=== PATIENT | female | born 1975 | race Hispanic/Latino ===

== ENCOUNTER → 2018-12-01 | Outpatient (CLI) | payer MEDICAID | END | disposition home or self-care (01) | LOC: RAH 11:03 | PROVIDERS: ATTEND Internal Medicine | DX: N83.202 Unspecified ovarian cyst, left side (principal); F41.1 Generalized anxiety disorder; N93.9 Abnormal uterine and vaginal bleeding, unspecified | CPT/HCPCS: 76856 ==

== ENCOUNTER → 2021-07-15 | Outpatient (CLI) | payer MEDICAID | END | disposition home or self-care (01) | LOC: OIH 13:18 | PROVIDERS: ATTEND Internal Medicine | DX: M47.815 Spondylosis without myelopathy or radiculopathy, thoracolumbar region (principal); R05.9 Cough, unspecified | CPT/HCPCS: 71046 ==

== ENCOUNTER 2025-04-30 09:56 | Inpatient (IN) | payer SELFPAY ==
[~2025-04-30] VITALS: Ht 162.6 cm; Wt 104.3 kg
[~2025-04-30 09:56] MED LIST: DICY10 PO
[2025-04-30 10:14] LABS: HCG,QUALITATIVE URINE NEGATIVE (NEGATIVE)
[2025-04-30 10:18] LABS: APPEARANCE,URINE CLEAR (CLEAR); GLUCOSE, URINE (UA) 500 mg/dL (NEGATIVE); LEUKOCYTE ESTERASE ,URINE 250 Leu/uL (NEGATIVE); NITRATE,URINE NEGATIVE (NEGATIVE); OCCULT BLOOD,URINE NEGATIVE (NEGATIVE)
[2025-04-30 10:19] LABS: ADD UA MICROSCOPIC YES
[2025-04-30 10:19] LABS: IMMATURE GRANULOCYTE ABSOLUTE 0.05 K/uL (0-1); NUCLEATED RED BLOOD CELLS 0.0 % (0.0-0.19); PLATELET COUNT (AUTO) 363 K/uL (130-400); RED BLOOD CELL COUNT(AUTO) 4.78 MIL/uL (4.00-5.50); RED CELL DISTRIBUTION WIDTH 13.5 % (11.0-15.5); WHITE BLOOD COUNT (AUTO) 10.1 K/uL (4.8-10.8)
[2025-04-30 10:26] LABS: CREATININE 0.8 mg/dL (0.5-1.0); GLOMERULAR FILTR. RATE CALC 91.0 mL/min (>90); GLUCOSE,RANDOM 254.0 mg/dL (70-105); SODIUM SERUM 135.0 mmol/L (136-145); UREA NITROGEN, BLOOD 12.0 mg/dL (7-18)
[2025-04-30 10:31] LABS: SQUAMOUS EPITHELIAL CELL,UR MOD /HPF (0-2)
[2025-04-30] MEDS: LACTATED RINGERS 1000ML 1,000 ML IV ONE (10:34)
[2025-04-30 10:36] LABS: ASPARTATE AMINOTRANSFERASE 13.0 U/L (10-37); HCG,QUANTITATIVE 0.0 mIU/mL (0-5); TOTAL PROTEIN, SERUM 7.7 g/dL (6.0-8.3)
--- NOTE | 2025-04-30 11:44 | ERN ---
General Chief Complaint: Abdominal Pain Stated Complaint: ABD PAIN/ NAUSEA Time Seen by MD: 09:57 Source: patient History of Present Illness Initial Comments Patient is a 49-year-old female coming in complaining of right upper quadrant pain. Per patient she has a history of a cholelithiasis discovered two years ago. Patient states that she was evaluated by her PCP and sent to a surgeon but has not has a a follow up yet. Patient states that the pain is 10/10 right upper quadrant area. Allergies: Coded Allergies: No Known Allergies (Unverified Allergy, Unknown, 03/03/22) Home Meds Active Scripts Dicyclomine HCl (Bentyl) 10 Mg Cap, 10 MG PO QID, #30 CAP Prov:GUILLERMO CATHERINE MD 03/03/22 Past Medical History Past Medical History: Diabetes-Type II Past Surgical History: BTL Social History Social History: Negative, Lives with family Female( History) History: Not Applicable ROS Dictation CONSTITUTIONAL: No chills, no fever, no weakness, no diaphoresis, no malaise. HEAD/FACE: No signs of trauma. EENT: No eye pain, no blurred vision, no tearing, no double vision, no ear pain, no ear discharge, no nose pain, no nasal congestion, no throat pain, no throat swelling, no mouth pain. RESPIRATORY: No cough, no orthopnea, no SOB, no stridor, no wheezing. CARDIOVASCULAR: No chest pain, no edema, no palpitations, no syncope. GASTROINTESTINAL/ABDOMINAL: abdominal pain, no constipation, no diarrhea, no nausea, no vomiting. GENITOURINARY: No abnormal discharge, no dysuria, no frequent urination, no hematuria. No complaints of pain in the genitals. MUSCULOSKELETAL: No back pain, no gout, no joint pain, no joint swelling, no muscle pain, no muscle stiffness, no neck pain. INTEGUMENTARY: No change in color, no change in hair/nails, no dryness, no lesion, no lumps, no rash. NEUROLOGICAL/PSYCH: No anxiety, not depressed, no emotional problem, no headache, no numbness, no pre-existing deficit, no history of seizures, no tremors, no weakness. HEMATOLOGIC/LYMPHATIC: Not anemic, no history of blood clots, no apparent bleeding, no bruising, glands not swollen. All Systems Negative, Except as Noted. Physical Exam Physical Exam Dictation VITAL SIGNS: Reviewed. GENERAL APPEARANCE: Alert, oriented x3, no acute distress, obese. HEAD AND FACE: Non-traumatic. EYES: PERRL, pink conjunctivas, eyelid no trauma, anterior chamber clear. EARS: Pinnas intact and no signs of trauma or erythema. Ear canals clear and no discharge. TMs no erythema. NOSE: No discharge, no bleeding. OROPHARYNX: Mouth normal, teeth no caries, tongue pink. Pharynx clear, no erythema. Tonsils no exudates, no abscesses noted. Mucous membrane moist. NECK: Supple, non-tender, no thyromegaly, no masses, no JVD, no bruits. BREAST: Deferred. CHEST: No tenderness, no crepitus, no paradoxical movement, no retractions. LUNGS: Clear, well-ventilated, symmetric, no rales, no wheezing, no rhonchi, no stridor, good breath sounds bilaterally. HEART: Regular rate, regular rhythm, no murmur, no gallops. VASCULAR: No peripheral edema. ABDOMEN: Soft, positive bowel sounds, nondistended, no guarding, right upper quadrant tender, no rebound, no masses no hepatomegaly, no splenomegaly, no Nichols's sign, no hernias. RECTAL: Deferred. GENITAL: Deferred. NEUROLOGICAL: Normal speech, gross motor function intact, gross sensory function intact. MUSCULOSKELETAL: Neck nontender, full range of motion, back nontender, full range of motion. EXTREMITIES: Nontender, full range of motion. SKIN: Color pink, dry, no turgor, no rash, no lacerations, no abrasions, no contusions. LYMPHATICS: Deferred. Results Laboratory and Microbiology Lab and Micro Result Laboratory Tests Test 04/30/25 10:03 04/30/25 10:11 Urine Color LIGHT-YELLOW (YELLOW) Urine Appearance CLEAR (CLEAR) Urine pH 5.5 (5.0-8.0) Urine Specific [place] 1.021 (1.001-1.031) Urine Protein NEGATIVE mg/dL (NEGATIVE) Urine Glucose (UA) 500 mg/dL (NEGATIVE) H Urine Ketones 20 mg/dL (NEGATIVE) H Urine Occult Blood NEGATIVE (NEGATIVE) Urine Nitrate NEGATIVE (NEGATIVE) Urine Bilirubin NEGATIVE mg/dL (NEGATIVE) Urine Urobilinogen 0.2 mg/dL (0.2-1.0) Urine Leukocyte Esterase 250 [place]/uL (NEGATIVE) H Urine RBC 2-5 /HPF (0-1) H Urine WBC 11-25 /HPF (0-1) H Urine Squamous Epithelial Cells MOD /HPF (0-2) Urine Bacteria FEW /HPF (None Seen) Urine HCG, Qualitative NEGATIVE (NEGATIVE) White Blood Count 10.1 K/uL (4.8-10.8) Red Blood Count 4.78 MIL/uL (4.00-5.50) Hemoglobin 14.5 g/dL (12.0-16.0) Hematocrit 42.4 % (36-48) Mean Corpuscular Volume 88.7 fL (79-99) Mean Corpuscular Hemoglobin 30.3 pg (27.0-33.0) Mean Corpuscular Hemoglobin Concent 34.2 g/dL (32.0-36.0) Red Cell Distribution Width 13.5 % (11.0-15.5) Platelet Count 363 K/uL (130-400) Mean Platelet Volume 10.1 fL (7.5-10.5) Immature Granulocyte % (Auto) 0.5 % (0-1) Neutrophils (%) (Auto) 63.7 % (40.0-77.0) Lymphocytes (%) (Auto) 27.2 % (21.0-51.0) Monocytes (%) (Auto) 6.3 % (3.0-13.0) Eosinophils (%) (Auto) 1.6 % (0.0-8.0) Basophils (%) (Auto) 0.7 % (0.0-5.0) Neutrophils # (Auto) 6.4 K/uL (1.8-7.7) Lymphocytes # (Auto) 2.7 K/uL (1.0-4.8) Monocytes # (Auto) 0.6 K/uL (0.1-1.0) Eosinophils # (Auto) 0.16 K/uL (0.00-0.70) Basophils # (Auto) 0.07 K/uL (0.00-0.20) Absolute Immature Granulocyte (auto 0.05 K/uL (0-1) Nucleated Red Blood Cells 0.0 % (0.0-0.19) Sodium Level 135 mmol/L (136-145) L Potassium Level 4.4 mmol/L (3.5-5.1) Chloride Level 100 mmol/L (101-111) L Carbon Dioxide Level 28 mmol/L (21-32) Blood Urea Nitrogen 12 mg/dL (7-18) Creatinine 0.8 mg/dL (0.5-1.0) Glomerular Filtration Rate Calc 91 mL/min (>90) Random Glucose 254 mg/dL (70-105) H Total Calcium 9.0 mg/dL (8.5-10.1) Total Bilirubin 0.4 mg/dL (0.2-1.0) Aspartate Amino Transf (AST/SGOT) 13 U/L (10-37) Alanine Aminotransferase (ALT/SGPT) 19 U/L (12-78) Alkaline Phosphatase 114 U/L (50-136) Total Protein 7.7 g/dL (6.0-8.3) Albumin 3.5 g/dL (3.5-5.0) Lipase 62 U/L (16-77) Human Chorionic Gonadotropin, Quant 0 mIU/mL (0-5) Labs Reviewed?: Yes EKG/XRAY/US/CT/MRI Ultrasound Comment Upper quadrant ultrasound-cholelithiasis rule out cholecystitis MDM MDM: Differential diagnosis: Cholecystitis, cholelithiasis, Rationale: Tests considered and ordered secondary to shared decision making include: labs, ECG and radiology Previous outside records reviewed: Old ER visits. Risk of complication and/or morbidity or mortality of patient management: None Medications-Per medication reconciliation Need for hospitalization: Patient does meet criteria for hospitalization. Need for emergency major/minor surgery: No There are no social concerns with this patient. Prescription drug management Prescriptions will include symptomatic care Patient's prior external medical records from other ER visits were reviewed by me as indicated. Prior testing and results from previous visits were reviewed. Prior tests were taken into account with medical decision making and resource utilization, independent historian/historians were used to obtain complete medical history. I independently interpreted the test that were performed, results were reviewed by me and considered findings on radiology if ordered. Medical management and examination interpretation discussions were had by me with other qualified healthcare professionals as indicated for the patient's care. Patient is a 49-year-old female coming in complaining of right upper quadrant pain per patient she has been dealing with this for many years and getting worse in the last couple of days. Patient will be admitted under the care of Dr. Howell surgeon on the case Dr. Osei ED Course Orders Procedure Category Date Status Time Cbc With Differential LAB 04/30/25 Complete 10:01 Comprehensive LAB 04/30/25 Complete Metabolic Panel 10:01 Hcg,Quantitative LAB 04/30/25 Complete 10:01 ,Urine Test LAB 04/30/25 Complete 10:01 Urinalysis Profile LAB 04/30/25 Complete 10:01 Us Abdominal Ruq\Ltd US 04/30/25 Taken 10:01 Lactated Ringers PHA 04/30/25 Complete 1000ml (Lactated 10:30 Ondansetron 4mg Inj PHA 04/30/25 Complete (Zofran 4mg Inj) 10:30 Pantoprazole 40mg Inj PHA 04/30/25 Complete (Protonix 40mg Inj 10:30 Lipase LAB 04/30/25 Complete 10:01 Culture Urine ISAÍAS 04/30/25 In Process 10:20 Morphine 2mg Syg PHA 04/30/25 Logged (Morphine 2mg Syg) 12:00 Ondansetron 4mg Inj PHA 04/30/25 Logged (Zofran 4mg Inj) 12:00 Current Medications Medications (Trade) Dose Ordered Sig/Toi Route PRN Reason Start Time Stop Time Status Last Admin Dose Admin Lactated Ringer's 1,000 ml @ 0 mls/hr ONCE ONCE IV 04/30/25 10:30 04/30/25 10:31 DC 04/30/25 10:34 Morphine Sulfate (morPHINE 4MG SYG) 2 mg ONCE ONCE IVP 04/30/25 12:00 04/30/25 12:01 Ondansetron HCl (zoFRAN 4MG INJ) 4 mg ONCE ONCE IVP 04/30/25 10:30 04/30/25 10:31 DC 04/30/25 10:34 Ondansetron HCl (zoFRAN 4MG INJ) 4 mg ONCE ONCE IVP 04/30/25 12:00 04/30/25 12:01 UNV Pantoprazole Sodium (PROTonix 40MG INJ) 40 mg ONCE ONCE IVP 04/30/25 10:30 04/30/25 10:31 DC 04/30/25 10:34 Vital Signs Date Time Temp Pulse Resp B/P (MAP) Pulse Ox O2 Delivery O2 Flow Rate FiO2 04/30/25 09:59 98.4 63 20 143/95 99 Room Air 5.0 DX & DISP Disposition: Inpatient Decision to Admit Time: 11:43 Departure Impression: Primary Impression: Cholecystitis Additional Impression: Cholelithiasis Condition: Stable Referrals: CONNIE HOWELL MD (PCP) MIGDALIA LOAIZA MD Apr 30, 2025 11:43
[2025-04-30] MEDS ORDERED: 0.9%NACL 50ML IV SCH (12:00)
--- NOTE | 2025-04-30 12:19 | HMCIMG ---
EXAM: US Abdomen, Right Upper Quadrant. CLINICAL HISTORY: Adominal Pain TECHNIQUE: Right upper quadrant sonography performed with image documentation. COMPARISON: Rosanne dated 03/03/2022 FINDINGS: LIVER: The liver is enlarged in size, measuring approximately 19 cm, with increased echogenicity. GALLBLADDER: Multiple calculi in the gallbladder, The gall bladder appears distended, measuring approximately 11.1 cm, and gallbladder thickness measures approximately 2 mm. COMMON BILE DUCT: No dilation. PANCREAS: The pancreas obscured by overlying bowel gas. RIGHT KIDNEY: Unremarkable. Normal renal contours. No renal mass or calculus. No hydronephrosis. IMPRESSION: 1. Hepatomegaly with increased echogenicity, suggesting hepatic steatosis. 2. Cholelithiasis with gallbladder distension. Findings are concerning for acute cholecystitis, recommend hepatobiliary (HIDA) scan for further evaluation. /Everetts
[2025-04-30] MEDS: ZOSYN 3.375GM +NS 50ML IVPB SCH (12:38)
[2025-04-30] MEDS: 1/2 NS 1000ML 1,000 ML IV SCH (12:38)
--- NOTE | 2025-04-30 14:15 | NUR ---
1st attempt to call report nurse currently at lunch angela will be accepting pt
--- NOTE | 2025-04-30 14:38 | NUR ---
second attempt nurse not back from lunch at this time
--- NOTE | 2025-04-30 14:51 | NUR ---
3rd attempt to contact nurse not back from lunch at this time aida advised will tell nurse about call
--- NOTE | 2025-04-30 15:01 | HP ---
HISTORY AND PHYSICAL NOTE DATE OF CONSULTATION: 04/30/25 REASON FOR CONSULTATION: Abdominal pain HISTORY OF PRESENT ILLNESS: Patient is a 49-year-old female coming in complaining of right upper quadrant pain. Per patient she has a history of a cholelithiasis discovered two years ago. Patient states that she was evaluated by her PCP and sent to a surgeon but has not has a a follow up yet. Patient states that the pain is 10/10 right upper quadrant area. Allergies: Coded Allergies: No Known Allergies (Unverified Allergy, Unknown, 03/03/22) Home Meds Active Scripts Dicyclomine HCl (Bentyl) 10 Mg Cap, 10 MG PO QID, #30 CAP Prov:GUILLERMO CATHERINE MD 03/03/22 Past History Past Medical History Past Medical History: Diabetes-Type II Past Surgical History: BTL Social History Social History: Negative, Lives with family Female( History) History: Not Applicable Review of Systems ROS Dictation CONSTITUTIONAL: No chills, no fever, no weakness, no diaphoresis, no malaise. HEAD/FACE: No signs of trauma. EENT: No eye pain, no blurred vision, no tearing, no double vision, no ear pain, no ear discharge, no nose pain, no nasal congestion, no throat pain, no throat swelling, no mouth pain. RESPIRATORY: No cough, no orthopnea, no SOB, no stridor, no wheezing. CARDIOVASCULAR: No chest pain, no edema, no palpitations, no syncope. GASTROINTESTINAL/ABDOMINAL: abdominal pain, no constipation, no diarrhea, no nausea, no vomiting. GENITOURINARY: No abnormal discharge, no dysuria, no frequent urination, no hematuria. No complaints of pain in the genitals. MUSCULOSKELETAL: No back pain, no gout, no joint pain, no joint swelling, no muscle pain, no muscle stiffness, no neck pain. INTEGUMENTARY: No change in color, no change in hair/nails, no dryness, no lesion, no lumps, no rash. NEUROLOGICAL/PSYCH: No anxiety, not depressed, no emotional problem, no headache, no numbness, no pre-existing deficit, no history of seizures, no tremors, no weakness. HEMATOLOGIC/LYMPHATIC: Not anemic, no history of blood clots, no apparent bleeding, no bruising, glands not swollen. All Systems Negative, Except as Noted. ALLERGIES: Coded Allergies: No Known Allergies (Unverified Allergy, Unknown, 03/03/22) HOME MEDS: Active Scripts Dicyclomine HCl (Bentyl) 10 Mg Cap, 10 MG PO QID, #30 CAP Prov:GUILLERMO CATHERINE MD 03/03/22 INPATIENT MEDS: Current Medications Medications Dose Ordered Sig/Toi Start Time Stop Time Status Last Admin Sodium Chloride 1,000 ml @ 125 mls/hr Q8H 04/30/25 12:00 05/30/25 11:59 04/30/25 12:38 Hydromorphone HCl 0.5 mg Q4H PRN 04/30/25 12:00 05/05/25 11:59 Ondansetron HCl 4 mg Q4H4 PRN 04/30/25 12:00 05/30/25 11:59 Pantoprazole Sodium 40 mg DAILY 05/01/25 09:00 05/31/25 08:59 Piperacillin Sod/ Tazobactam Sod 3.375 gm Q8H 04/30/25 12:00 05/02/25 11:59 04/30/25 12:38 VITAL SIGNS Vital Signs Date Time Temp Pulse Resp B/P (MAP) Pulse Ox O2 Delivery O2 Flow Rate FiO2 04/30/25 14:13 98.4 72 16 153/91 98 Room Air* 0 21 04/30/25 12:23 98.4 64 16 164/109 98 Room Air* 0 21 04/30/25 09:59 98.4 63 20 143/95 99 Room Air 5.0 PHYSICAL EXAM Physical Exam Physical Exam Physical Exam Dictation VITAL SIGNS: Reviewed. GENERAL APPEARANCE: Alert, oriented x3, no acute distress, obese. HEAD AND FACE: Non-traumatic. EYES: PERRL, pink conjunctivas, eyelid no trauma, anterior chamber clear. EARS: Pinnas intact and no signs of trauma or erythema. Ear canals clear and no discharge. TMs no erythema. NOSE: No discharge, no bleeding. OROPHARYNX: Mouth normal, teeth no caries, tongue pink. Pharynx clear, no erythema. Tonsils no exudates, no abscesses noted. Mucous membrane moist. NECK: Supple, non-tender, no thyromegaly, no masses, no JVD, no bruits. BREAST: Deferred. CHEST: No tenderness, no crepitus, no paradoxical movement, no retractions. LUNGS: Clear, well-ventilated, symmetric, no rales, no wheezing, no rhonchi, no stridor, good breath sounds bilaterally. HEART: Regular rate, regular rhythm, no murmur, no gallops. VASCULAR: No peripheral edema. ABDOMEN: Soft, positive bowel sounds, nondistended, no guarding, right upper quadrant tender, no rebound, no masses no hepatomegaly, no splenomegaly, no Nichols's sign, no hernias. RECTAL: Deferred. GENITAL: Deferred. NEUROLOGICAL: Normal speech, gross motor function intact, gross sensory function intact. MUSCULOSKELETAL: Neck nontender, full range of motion, back nontender, full range of motion. EXTREMITIES: Nontender, full range of motion. SKIN: Color pink, dry, no turgor, no rash, no lacerations, no abrasions, no contusions. LYMPHATICS: Deferred. LABORATORY RESULTS Laboratory Tests 04/30/25 10:03: Urine Color LIGHT-YELLOW, Urine Appearance CLEAR, Urine pH 5.5, Urine Specific [place] 1.021, Urine Protein NEGATIVE, Urine Glucose (UA) 500, Urine Ketones 20, Urine Occult Blood NEGATIVE, Urine Nitrate NEGATIVE, Urine Bilirubin NEGATIVE, Urine Urobilinogen 0.2, Urine Leukocyte Esterase 250, Urine RBC 2-5, Urine WBC 11-25, Urine Squamous Epithelial Cells MOD, Urine Bacteria FEW, Urine HCG, Qualitative NEGATIVE 04/30/25 10:11: White Blood Count 10.1, Red Blood Count 4.78, Hemoglobin 14.5, Hematocrit 42.4, Mean Corpuscular Volume 88.7, Mean Corpuscular Hemoglobin 30.3, Mean Corpuscular Hemoglobin Concent 34.2, Red Cell Distribution Width 13.5, Platelet Count 363, Mean Platelet Volume 10.1, Immature Granulocyte % (Auto) 0.5, Neutrophils (%) (Auto) 63.7, Lymphocytes (%) (Auto) 27.2, Monocytes (%) (Auto) 6.3, Eosinophils (%) (Auto) 1.6, Basophils (%) (Auto) 0.7, Neutrophils # (Auto) 6.4, Lymphocytes # (Auto) 2.7, Monocytes # (Auto) 0.6, Eosinophils # (Auto) 0.16, Basophils # (Auto) 0.07, Absolute Immature Granulocyte (auto 0.05, Nucleated Red Blood Cells 0.0, Sodium Level 135, Potassium Level 4.4, Chloride Level 100, Carbon Dioxide Level 28, Blood Urea Nitrogen 12, Creatinine 0.8, Glomerular Filtration Rate Calc 91, Random Glucose 254, Total Calcium 9.0, Total Bilirubin 0.4, Aspartate Amino Transf (AST/SGOT) 13, Alanine Aminotransferase (ALT/SGPT) 19, Alkaline Phosphatase 114, Total Protein 7.7, Albumin 3.5, Lipase 62, Human Chorionic Gonadotropin, Quant 0 PROBLEM LIST: (1) Biliary colic ICD Codes: K80.50 - Calculus of bile duct without cholangitis or cholecystitis without obstruction (2) Cholelithiasis ICD Codes: K80.20 - Calculus of gallbladder without cholecystitis without obstruction PLAN Admit NPO IV fluids Consult surgery CONNIE HOWELL MD Apr 30, 2025 15:01
[2025-04-30] MEDS ORDERED: RISP-30 PO (15:18)
[2025-04-30] MEDS ORDERED: ROSU10TA72 PO (15:18)
[2025-04-30] MEDS ORDERED: GLIM4TAB36 PO (15:18)
[2025-04-30 15:30] VITALS: BP 142/93; PULSE 58; RESP 20; TEMP 97.7
--- NOTE | 2025-04-30 15:53 | CONS ---
GENERAL SURGERY CONSULTATION NOTE Date/Time Patient Seen: [ April 30, 2025] Requesting Physician: [ ] Reason for Consultation: [Gallstones ] History of Present Illness: [ Patients who has known she has had gallstones for many years. However over 48 hours ago patient started to experience excruciating pain in the right upper quadrant. Associated with the pain with some nausea and some emesis. Patient denies any melena, hematochezia, hematuria. Pain was severe enough patient came in the emergency room. Complete lab work and an ultrasound was obtained. The ultrasound shows a distended gallbladder with multiple stones within it. I pe rsonally reviewed the ultrasound. Patient also has a thickened gallbladder wall. Prior to onset of symptoms patient was tolerating a regular diet, having regular bowel function.] Past Medical History: [Diabetes] Past Surgical History: [Tubal ligation] Family History: [ Noncontributory] Social History: [ Patient denies any illicit drug use] Habits: [Never] smoker. [Denies] alcohol consumption. [Denies] illicit drug use Current Medications Medications (Trade) Dose Ordered Sig/Toi Route Start Time Stop Time Status Last Admin Dose Admin Pantoprazole Sodium (PROTonix 40MG INJ) 40 mg DAILY IVP 05/01/25 09:00 05/31/25 08:59 Piperacillin Sod/ Tazobactam Sod (Zosyn 3.375gm+NS 50ml) 3.375 gm Q8H IVPB 04/30/25 12:00 05/02/25 11:59 04/30/25 12:38 3.375 GM Sodium Chloride 1,000 ml @ 125 mls/hr Q8H IV 04/30/25 12:00 05/30/25 11:59 04/30/25 12:38 125 MLS/HR Sodium Chloride (NS 50ml) 50 ml AD IV 04/30/25 12:00 04/30/25 12:01 DC Review of Systems: CONST: [No fever, fatigue, or weight changes.] EYES: [No recent vision problems.] ENT: [No congestion, ear pain, or sore throat.] C/V: [No chest pain, palpitations, or edema.] RESP: [No cough, congestion, wheezing or shortness of breath.] GI: [No abdominal pain, nausea, vomiting, constipation, or diarrhea.] : [No incontinence or dysuria.] SKIN: [No rash.] NEURO: [No headache, focal numbness or weakness, dizziness, or seizures.] PSYCH: [No depression or anxiety.] HEME: [No abnormal bruising or bleeding.] LYMPH: [No swollen glands.] Physical Examination: PHYSICAL EXAM EYES: Sclera white HENT: Oral nasal mucosa pink and moist NECK: Supple, . LUNGS: Unlabored CARDIOVASCULAR: Regular rate and rhythm ABDOMEN: Tender to palpation right upper quadrant. No rebound. No peritoneal signs. CENTRAL NERVOUS SYSTEM: Awake, alert, oriented x3 SKIN: No rashes, no swelling. LYMPHATICS: No peripheral lymphadenopathy MUSCULOSKELETAL: Motor and sensory function grossly intact EXTREMITIES: No cyanosis or clubbing Vital Signs (last 8hr) Date Time Temp Pulse Resp B/P (MAP) Pulse Ox O2 Delivery O2 Flow Rate FiO2 04/30/25 15:14 98.4 78 16 136/92 98 Room Air* 0 21 04/30/25 14:13 98.4 72 16 153/91 98 Room Air* 0 21 04/30/25 12:23 98.4 64 16 164/109 98 Room Air* 0 21 04/30/25 09:59 98.4 63 20 143/95 99 Room Air 5.0 Laboratory: [ ] Hematology Labs: Test 04/30/25 10:11 Range/Units White Blood Count 10.1 4.8-10.8 K/uL Red Blood Count 4.78 4.00-5.50 MIL/uL Hemoglobin 14.5 12.0-16.0 g/dL Hematocrit 42.4 36-48 % Mean Corpuscular Volume 88.7 79-99 fL Mean Corpuscular Hemoglobin 30.3 27.0-33.0 pg Mean Corpuscular Hemoglobin Concent 34.2 32.0-36.0 g/dL Red Cell Distribution Width 13.5 11.0-15.5 % Platelet Count 363 130-400 K/uL Mean Platelet Volume 10.1 7.5-10.5 fL Immature Granulocyte % (Auto) 0.5 0-1 % Neutrophils (%) (Auto) 63.7 40.0-77.0 % Lymphocytes (%) (Auto) 27.2 21.0-51.0 % Monocytes (%) (Auto) 6.3 3.0-13.0 % Eosinophils (%) (Auto) 1.6 0.0-8.0 % Basophils (%) (Auto) 0.7 0.0-5.0 % Neutrophils # (Auto) 6.4 1.8-7.7 K/uL Lymphocytes # (Auto) 2.7 1.0-4.8 K/uL Monocytes # (Auto) 0.6 0.1-1.0 K/uL Eosinophils # (Auto) 0.16 0.00-0.70 K/uL Basophils # (Auto) 0.07 0.00-0.20 K/uL Absolute Immature Granulocyte (auto 0.05 0-1 K/uL Nucleated Red Blood Cells 0.0 0.0-0.19 % Chemistry Labs: Test 04/30/25 10:11 Range/Units Sodium Level 135 L 136-145 mmol/L Potassium Level 4.4 3.5-5.1 mmol/L Chloride Level 100 L 101-111 mmol/L Carbon Dioxide Level 28 21-32 mmol/L Blood Urea Nitrogen 12 7-18 mg/dL Creatinine 0.8 0.5-1.0 mg/dL Glomerular Filtration Rate Calc 91 >90 mL/min Random Glucose 254 H 70-105 mg/dL Total Calcium 9.0 8.5-10.1 mg/dL Total Bilirubin 0.4 0.2-1.0 mg/dL Aspartate Amino Transf (AST/SGOT) 13 10-37 U/L Alanine Aminotransferase (ALT/SGPT) 19 12-78 U/L Alkaline Phosphatase 114 50-136 U/L Total Protein 7.7 6.0-8.3 g/dL Albumin 3.5 3.5-5.0 g/dL Lipase 62 16-77 U/L Human Chorionic Gonadotropin, Quant 0 0-5 mIU/mL Diagnostics / Radiology: [Copy/Paste Echos/Imaging Report here] Assessment: [ Gallstones causing patient discomfort.] Plan: [Plan laparoscopic cholecystectomy with intraoperative cholangiogram. Risks associated with the procedure not limited to infection, bleeding, injury to surrounding structures has been discussed with the patient and she indicates she understands. ] VITO ROSE MD Apr 30, 2025 15:53
[2025-04-30 20:17] VITALS: BP 125/82; PULSE 60; RESP 20; TEMP 97.5
[2025-05-01] VITALS (28 sets, daily range): BP systolic 118–162; BP diastolic 67–132; PULSE 46–102; RESP 15–19; TEMP 97.3–98.3; O2SAT 96–97
[2025-05-01 06:30] LABS: IMMATURE GRANULOCYTE ABSOLUTE 0.03 K/uL (0-1); NUCLEATED RED BLOOD CELLS 0.0 % (0.0-0.19); PLATELET COUNT (AUTO) 280 K/uL (130-400); RED BLOOD CELL COUNT(AUTO) 4.41 MIL/uL (4.00-5.50); RED CELL DISTRIBUTION WIDTH 13.6 % (11.0-15.5); WHITE BLOOD COUNT (AUTO) 8.1 K/uL (4.8-10.8)
[2025-05-01 06:49] LABS: ASPARTATE AMINOTRANSFERASE 19.0 U/L (10-37); CREATININE 0.7 mg/dL (0.5-1.0); GLOMERULAR FILTR. RATE CALC 107.0 mL/min (>90); GLUCOSE,RANDOM 166.0 mg/dL (70-105); SODIUM SERUM 138.0 mmol/L (136-145); TOTAL PROTEIN, SERUM 6.9 g/dL (6.0-8.3); UREA NITROGEN, BLOOD 7.0 mg/dL (7-18)
[2025-05-01] MEDS ORDERED: BUPIvacaine HCL/EPINEPHrine/PF 0.25% 10ML VIAL IJ ONE (07:08)
[2025-05-01] MEDS ORDERED: MIDAZOLAM HCL 1 MG/ML 2ML VIAL ONE (07:21)
[2025-05-01] MEDS: IOHEXOL-300 50 ML VIAL IV ONE (08:10)
[2025-05-01] MEDS ORDERED: GLYCOPYRROLATE 0.2 MG/ML 5 ML VIAL ONE (08:29)
[2025-05-01] MEDS ORDERED: NEOSTIGMINE METHYLSULFATE 1MG/ML IV ONE (08:29)
--- NOTE | 2025-05-01 08:32 | OP ---
Operative Note: DATE OF PROCEDURE: 05/01/25 SURGEON: VITO ROSE MD FORMULA CHECKER: [Faina Reyes CFA] ANESTHESIA: [General endotracheal anesthesia] ANESTHESIOLOGIST/TOBACCO DRYING MACHINE OPERATOR: [[facility] anesthesia team] PREOPERATIVE DIAGNOSIS: [Cholecystitis] POSTOPERATIVE DIAGNOSIS: [Same] SYNOPSIS: [Cholecystitis causing patient discomfort Laparoscopic cholecystectomy with intraoperative cholangiogram #1 critical view obtained, #2 intraoperative cholangiogram with good flow of contrast from cystic duct into common bile duct, right and left hepatic duct, and duodenum noted All sponges and instruments accounted for at the end the case Patient tolerated the procedure well, there no complications] PROCEDURE: [Laparoscopic cholecystectomy with intraoperative cholangiogram] ESTIMATED BLOOD LOSS: [Less than 10 cc] INDICATIONS: [Cholecystitis] DESCRIPTION OF PROCEDURE: [On day of surgery patient was brought to the operating room. Positioned in the supine position. Preoperative antibiotics were given. Bilateral SCDs were placed. The patient was intubated. Patient then was prepped and draped in the usual fashion. Then a skin incision was made in the right upper quadrant. 5 mm trochars inserted under direct vision. Abdomen was insufflated to 15 mmHg. No injury to omentum or bowel is noted. A 5 mm port was placed in the umbilicus. A 12 mm port was placed in the subxiphoid position. A 5 mm port was placed in the right lateral abdomen. The gallbladder was grasped, elevated, the cystic duct and cystic artery was sequentially dissected. Critical view was obtained. An intraoperative cholangiogram was conducted by placing a clip at the distal end of the cystic duct. Ductotomy was made. A cholangiocatheter was introduced. Good flow of contrast from the cystic duct into common bile duct, right and left hepatic duct, and duodenum was noted. The Cholangiocath was removed. The cystic duct was sequentially clipped and transected. The cystic artery was then sequentially clipped and transected. The gallbladder then was dissected off the gallbladder fossa and removed an Endo Catch bag. Abdomen was irrigated. Appropriate hemostasis was noted. Then all insufflation gas was removed. Ports were removed. Local anesthetic was instilled into the incisions, and the incisions were closed with a subcuticular fashion. All sponges and instruments were accounted for at the end of the case. Patient tolerated the procedure well, there were no complications.] VITO ROSE MD May 01, 2025 08:32
[2025-05-01] MEDS ORDERED: IOHEXOL-350 50ML VIAL IV ONE (08:39)
--- NOTE | 2025-05-01 09:43 | NUR ---
NURSING NOTE RECEIVED PATIENT BACK FROM PACU. PATIENT HAD LAP MARK WITH DR ROSE. PATIENT ORIENTATED BACK TO ROOM, NO 02 NEEDED. VITAL SIGNS WERE STARTED. 3 INCISION TO ABD. ANSWERED ANY QUESTIONS AND CONCERNS PATIENT HAD. CALL LIGHT WITHIN REACH OF PATIENT.
--- NOTE | 2025-05-01 11:18 | NUR ---
DCP:HOME Pt currently lives at home with her brother and adult children. Pt states that she does not have any DME, home health, or provider services. Pt states that she is able to complete ADLs independently. Pt states that she does not have insurance but does private pay with Dr. Canseco and uses [facility] for any RX needs. At [place] pt will want to go home and family can assist with transportation. Addendum: 05/01/25 at 1119 by HELADIO PLUNKETT SS Amended: Links added.
[2025-05-01] MEDS: PoTASSium chloRIDE 20MEQ ER 20 MEQ ERTAB PO PRN (13:57)
--- NOTE | 2025-05-01 16:28 | PN ---
PROGRESS NOTE PROGRESS NOTE DATE OF PROGRESS NOTE: 05/01/25 SUBJECTIVE: pending surgery VITAL SIGNS Vital Signs Date Time Temp Pulse Resp B/P (MAP) Pulse Ox O2 Delivery O2 Flow Rate FiO2 05/01/25 13:19 67 162/97 98 Room Air 21 05/01/25 09:34 97.9 05/01/25 09:31 16 05/01/25 09:01 10.0 PHYSICAL EXAM: Physical Exam Physical Exam Physical Exam Dictation VITAL SIGNS: Reviewed. GENERAL APPEARANCE: Alert, oriented x3, no acute distress, obese. HEAD AND FACE: Non-traumatic. EYES: PERRL, pink conjunctivas, eyelid no trauma, anterior chamber clear. EARS: Pinnas intact and no signs of trauma or erythema. Ear canals clear and no discharge. TMs no erythema. NOSE: No discharge, no bleeding. OROPHARYNX: Mouth normal, teeth no caries, tongue pink. Pharynx clear, no erythema. Tonsils no exudates, no abscesses noted. Mucous membrane moist. NECK: Supple, non-tender, no thyromegaly, no masses, no JVD, no bruits. BREAST: Deferred. CHEST: No tenderness, no crepitus, no paradoxical movement, no retractions. LUNGS: Clear, well-ventilated, symmetric, no rales, no wheezing, no rhonchi, no stridor, good breath sounds bilaterally. HEART: Regular rate, regular rhythm, no murmur, no gallops. VASCULAR: No peripheral edema. ABDOMEN: Soft, positive bowel sounds, nondistended, no guarding, right upper quadrant tender, no rebound, no masses no hepatomegaly, no splenomegaly, no Nichols's sign, no hernias. RECTAL: Deferred. GENITAL: Deferred. NEUROLOGICAL: Normal speech, gross motor function intact, gross sensory function intact. MUSCULOSKELETAL: Neck nontender, full range of motion, back nontender, full range of motion. EXTREMITIES: Nontender, full range of motion. SKIN: Color pink, dry, no turgor, no rash, no lacerations, no abrasions, no contusions. LYMPHATICS: Deferred. LABORATORY: Laboratory Result(s) Test 04/30/25 22:02 05/01/25 06:26 05/01/25 07:16 Whole Blood Glucose 152 MG/DL (70-110) 173 MG/DL (70-110) White Blood Count 8.1 K/uL (4.8-10.8) Red Blood Count 4.41 MIL/uL (4.00-5.50) Hemoglobin 13.3 g/dL (12.0-16.0) Hematocrit 38.8 % (36-48) Mean Corpuscular Volume 88.0 fL (79-99) Mean Corpuscular Hemoglobin 30.2 pg (27.0-33.0) Mean Corpuscular Hemoglobin Concent 34.3 g/dL (32.0-36.0) Red Cell Distribution Width 13.6 % (11.0-15.5) Platelet Count 280 K/uL (130-400) Mean Platelet Volume 10.4 fL (7.5-10.5) Immature Granulocyte % (Auto) 0.4 % (0-1) Neutrophils (%) (Auto) 53.5 % (40.0-77.0) Lymphocytes (%) (Auto) 36.2 % (21.0-51.0) Monocytes (%) (Auto) 6.8 % (3.0-13.0) Eosinophils (%) (Auto) 2.2 % (0.0-8.0) Basophils (%) (Auto) 0.9 % (0.0-5.0) Neutrophils # (Auto) 4.4 K/uL (1.8-7.7) Lymphocytes # (Auto) 2.9 K/uL (1.0-4.8) Monocytes # (Auto) 0.6 K/uL (0.1-1.0) Eosinophils # (Auto) 0.18 K/uL (0.00-0.70) Basophils # (Auto) 0.07 K/uL (0.00-0.20) Absolute Immature Granulocyte (auto 0.03 K/uL (0-1) Nucleated Red Blood Cells 0.0 % (0.0-0.19) Sodium Level 138 mmol/L (136-145) Potassium Level 3.3 mmol/L (3.5-5.1) Chloride Level 104 mmol/L (101-111) Carbon Dioxide Level 26 mmol/L (21-32) Blood Urea Nitrogen 7 mg/dL (7-18) Creatinine 0.7 mg/dL (0.5-1.0) Glomerular Filtration Rate Calc 107 mL/min (>90) Random Glucose 166 mg/dL (70-105) Total Calcium 8.7 mg/dL (8.5-10.1) Total Bilirubin 0.7 mg/dL (0.2-1.0) Aspartate Amino Transf (AST/SGOT) 19 U/L (10-37) Alanine Aminotransferase (ALT/SGPT) 17 U/L (12-78) Alkaline Phosphatase 85 U/L (50-136) Total Protein 6.9 g/dL (6.0-8.3) Albumin 3.1 g/dL (3.5-5.0) Lipase 43 U/L (16-77) INPATIENT MEDS: Current Medications Medications Dose Ordered Sig/Toi Start Time Stop Time Status Last Admin Sodium Chloride 1,000 ml @ 125 mls/hr Q8H 04/30/25 12:00 05/30/25 11:59 05/01/25 04:01 Hydromorphone HCl 0.5 mg Q4H PRN 04/30/25 12:00 05/05/25 11:59 Ondansetron HCl 4 mg Q4H4 PRN 04/30/25 12:00 05/30/25 11:59 Pantoprazole Sodium 40 mg DAILY 05/01/25 09:00 05/31/25 08:59 Piperacillin Sod/ Tazobactam Sod 3.375 gm Q8H 04/30/25 12:00 05/02/25 11:59 05/01/25 11:35 Tramadol HCl 50 mg Q6H PRN 05/01/25 10:00 05/06/25 09:59 Gabapentin 100 mg TID 05/01/25 14:00 05/31/25 13:59 05/01/25 13:56 Docusate Sodium 100 mg BID PRN 05/01/25 21:00 05/31/25 20:59 Methocarbamol 500 mg TID 05/01/25 14:00 05/31/25 13:59 05/01/25 13:56 Potassium Chloride 100 ml @ 100 mls/hr AD PRN 05/01/25 10:30 05/31/25 10:29 Potassium Chloride 20 meq AD PRN 05/01/25 10:30 05/31/25 10:29 Potassium Chloride 20 meq AD PRN 05/01/25 10:30 05/31/25 10:29 05/01/25 13:57 PROBLEM LIST: (1) Biliary colic ICD Code: K80.50 - Calculus of bile duct without cholangitis or cholecystitis without obstruction (2) Cholelithiasis ICD Code: K80.20 - Calculus of gallbladder without cholecystitis without obstruction PLAN: Admit NPO IV fluids Consult surgery CONNIE HOWELL MD May 01, 2025 16:28
[2025-05-01] MEDS: PoTASSium chl 10% ELIXIR 20MEQ 20 MEQ/15 ML UDCUP PO PRN (18:19)
[2025-05-02 04:29] VITALS: BP 120/65; PULSE 64; RESP 18; TEMP 98
[2025-05-02 07:29] VITALS: BP 123/71; PULSE 57; RESP 18; TEMP 98.2
[2025-05-02 08:00] VITALS: O2SAT 96
--- NOTE | 2025-05-02 08:45 | NUR ---
PATIENT DISCHARGED HOME ID BAND AND IV REMOVED. DISCHARGE INSTRUCTIONS EXPLAINED AND GIVEN TO PATIENT. PATIENT VERBALIZED UNDERSTANDING. BELONGINGS PACKED AND TAKEN BY PATIENT. WHEELED DOWN T PRIVATE CAR.
--- NOTE | 2025-05-02 10:51 | DS ---
Discharge Summary DIAGNOSE(S): [Acute cholecystitis] HOSPITAL COURSE SUMMARY: [Presented with acute biliary colic underwent successful cholecystectomy discharged on oral Augmentin for another three days other problems chronic remained stable] IT SUPPORT ANALYST(S): [General surgery] PROCEDURE(S)/TREATMENT(S): [Laparoscopic cholecystectomy] PROBLEM(S): [] FOLLOW-UP TEST(S): [None] DISCHARGE INSTRUCTIONS: [Follow up with me in 1-2 days] Home Meds Reported Medications Rosuvastatin Calcium (Rosuvastatin Calcium) 10 Mg Tablet, 1 TAB PO DAILY 04/30/25 Glimepiride (Glimepiride) 4 Mg Tablet, 1 TAB PO DAILY 04/30/25 Risperidone (Risperidone) 1 Mg Tablet, 1 TAB PO HS 04/30/25 Discontinued Scripts Dicyclomine HCl (Bentyl) 10 Mg Cap, 10 MG PO QID, #30 CAP Prov:GUILLERMO CATHERINE MD 03/03/22 CONNIE HOWELL MD May 02, 2025 10:51
== END 2025-05-02 08:58 | disposition home or self-care (01) | DRG 419 ==
LOC: EDH 09:56 → EDHIP 09:57 → OBSVTOIN 09:57 → 3BH 15:30
PROVIDERS: ADMIT Internal Medicine; ATTEND Internal Medicine
PROC: BF131ZZ Fluoroscopy of Gallbladder and Bile Ducts using Low Osmolar Contrast (ICD-10-PCS; 2025-05-01)
PROC: 0FT44ZZ Resection of Gallbladder, Percutaneous Endoscopic Approach (ICD-10-PCS; principal; 2025-05-01 07:58)
DX: K80.62 Calculus of gallbladder and bile duct with acute cholecystitis without obstruction (principal); E11.9 Type 2 diabetes mellitus without complications; K82.8 Other specified diseases of gallbladder
CPT/HCPCS: 36415; 74300; 76000; 76705; 80053; 81001; 81025; 82948; 83690; 84702; 85025; 87086; 88304; C1758; G0378; J1100; J1171; J2250; J2270; J2405; J2470; J2543; J2704; J2710; J3010; J3490; J7030; Q9967; A4216; A4222; A4223; A4600; A4649; A4930